=== PATIENT | male | born 1975 | race Caucasian/White ===

== ENCOUNTER 2021-01-05 11:40 | Emergency (ER) | payer OTHER ==
[~2021-01-05] VITALS: Ht 185.4 cm; Wt 108.9 kg
[2021-01-05] MEDS ORDERED: DILTIAZEM ER300 MG PO (12:33)
== END 2021-01-05 13:11 | disposition home or self-care (01) ==
LOC: ED 11:40
DX: Z77.21 Contact with and (suspected) exposure to potentially hazardous body fluids (principal)
CPT/HCPCS: 84460; 99283